=== PATIENT | male | born 1990 | race Caucasian/White ===

== ENCOUNTER 2017-03-25 11:19 | Inpatient (IN) | payer OTHER ==
[2017-03-25 11:44] VITALS: BMI 23.7
--- NOTE | 2017-03-25 13:03 | HP ---
COWS - Scale Resting Pulse: 0= [place] 80 or Below Sweatin=Flushed/Facial Moisture Restless Observation: 1= Difficult to Sit Still Pupil Size: 0= Normal to Room Light Bone or Joint Aches: 2= Severe Diffuse Aches Runny Nose/ Eye Tearin= Runny Nose/Eyes GI Upset > 30mins: 1= Stomach Cramp Tremor Observation: 2= Slight Tremor Visible Yawning Observation: 2= >3x During Session Anxiety or Irritability: 2=Irritable/Anxious Goose Flesh Skin: 3=Piloerection COWS Score: 17 CIWA Score - CIWA Score Nausea/Vomitin-No Nausea/No Vomiting Muscle Tremors: 4-Moderate,w/Arms Extend Anxiety: 4-Mod. Anxious/Guarded Agitation: 4-Moderately Restless Paroxysmal Sweats: 3 Orientation: 0-Oriented Tacttile Disturbances: 0-None Auditory Disturbances: 0-None Visual Disturbances: 0-None Headache: 1-Very Mild CIWA-Ar Total Score: 16 Admission ROS S - HPI Chief Complaint: I am here to detox. Allergies/Adverse Reactions: Allergies Allergy/AdvReac Type Severity Reaction Status Date / Time No Known Allergies Allergy Verified 03/25/17 12:39 History of Present Illness: pt is a 27yr old male with a history of heroin and xanax dependence seeking detox for treatment. Exam Limitations: No Limitations - Ebola screening Have you traveled outside of the country in the last 21 days: No Have you had contact with anyone from an Ebola affected area: No Have you been sick,other than usual withdrawal symptoms: No Do you have a fever: No - Review of Systems Constitutional: Chills, Diaphoresis, Loss of Appetite, Night Sweats, Changes in sleep, Unintentional Wgt. Loss EENT: reports: Tearing, Nose Congestion Respiratory: reports: No Symptoms reported Cardiac: reports: No Symptoms Reported GI: reports: Diarrhea, Nausea, Poor Appetite, Poor Fluid Intake : reports: No Symptoms Reported Musculoskeletal: reports: Back Pain, Joint Pain, Muscle Pain Integumentary: reports: Flushing, Sweating Neuro: reports: Headache, Tingling, Tremors Endocrine: reports: Excessive Sweating, Flushing, Intolerance to Cold, Intolerance to Heat Hematology: reports: No Symptoms Reported Psychiatric: reports: Judgement Intact, Mood/Affect Appropiate, Orientated x3, Agitated, Anxious Other Systems: Reviewed and Negative Patient History - Patient Medical History Hx Anemia: No Hx Asthma: No Hx Chronic Obstructive Pulmonary Disease (COPD): No Hx Cancer: No Hx Cardiac Disorders: No Hx Congestive Heart Failure: No Hx Hypertension: No Hx Hypercholesterolemia: No Hx Pacemaker: No HX Cerebrovascular Accident: No Hx Seizures: No Hx Dementia: No Hx Diabetes: No Hx Gastrointestinal Disorders: No Hx Liver Disease: No Hx Genitourinary Disorders: No Hx Sexually Transmitted Disorders: No Hx Renal Disease (ESRD): No Hx Thyroid Disease: No Hx Human Immunodeficiency Virus (HIV): No (negative) Hx Hepatitis C: No (negative) Hx Depression: No Hx Suicide Attempt: No (denies) Hx Bipolar Disorder: No Hx Schizophrenia: No - Patient Surgical History Past Surgical History: No Hx Neurologic Surgery: No Hx Cataract Extraction: No Hx Cardiac Surgery: No Hx Lung Surgery: No Hx Breast Surgery: No Hx Breast Biopsy: No Hx Abdominal Surgery: No Hx Appendectomy: No Hx Cholecystectomy: No Hx Genitourinary Surgery: No Hx Section: No Hx Orthopedic Surgery: No Anesthesia Reaction: No - PPD History Previous Implant?: Yes Documented Results: Negative w/o proof Implanted On Prior R Admission?: No PPD to be Administered?: Yes - Reproductive History Patient is a Female of Child Bearing Age (11 -55 yrs old): No - Smoking Cessation Smoking history: Current every day smoker Have you smoked in the past 12 months: Yes Aproximately how many cigarettes per day: 20 Hx Chewing Tobacco Use: No Initiated information on smoking cessation: Yes 'Breaking Loose' booklet given: 03/25/17 - Substance & Tx. History Hx Alcohol Use: No Hx Substance Use: Yes Substance Use Type: Heroin, Tranquilizers Hx Substance Use Treatment: Yes - Substances Abused Heroin Route: Inhalation Frequency: Daily Amount used: 20 bags Age of first use: 25 Date of Last Use: 03/24/17 Xanax Route: Oral Frequency: Daily Amount used: 8 mg. Age of first use: 25 Date of Last Use: 03/24/17 Family Disease History - Family Disease History Family History: Denies Admission Physical Exam BHS - Vital Signs Vital Signs: Vital Signs - 24 hr 03/25/17 11:35 Temperature 97.2 F L Pulse Rate 69 Respiratory 20 Rate Blood Pressure 112/68 - Physical General Appearance: Yes: Appropriately Dressed, Moderate Distress, Tremorous, Irritable, Sweating, Anxious HEENTM: Yes: Nasal Congestion, Rhinorrhea Respiratory: Yes: Lungs Clear, Normal Breath Sounds, No Respiratory Distress Neck: Yes: No masses,lesions,Nodules Breast: Yes: Within Normal Limits Cardiology: Yes: Regular Rhythm, Regular Rate, S1, S2 Abdominal: Yes: Normal Bowel Sounds, Soft Genitourinary: Yes: Within Normal Limits Back: Yes: Normal Inspection Musculoskeletal: Yes: Back pain Extremities: Yes: Normal Capillary Refill, Normal Inspection, Tremors Neurological: Yes: Fully Oriented, Alert, Normal Response Integumentary: Yes: Normal Color, Diaphoresis Lymphatic: Yes: Within Normal Limits - Diagnostic (1) Nicotine dependence Current Visit: Yes Status: Chronic (2) Opioid dependence with withdrawal Current Visit: Yes Status: Chronic (3) Sedative, hypnotic or anxiolytic dependence with withdrawal, uncomplicated Current Visit: Yes Status: Chronic (4) Weight loss Current Visit: Yes Status: Acute Cleared for Admission [facility] - Detox or Rehab [facility] Level of Care: Medically Managed Detox Regimen/Protocol: Methadone/Valium [facility] Breath Alcohol Content Breath Alcohol Content: 0 Urine Drug Screen - Results Drug Screen Negative: No Urine Drug Screen Results: OPI-Opiates, MET-Methamphetamine, BZO-Benzodiazepines , MTD-Methadone, OXY-Oxycodone
[2017-03-25] MEDS ORDERED: guaiFENesin/D-METHORPHAN HB 10 ML UNIT-DOSE CUPS PO PRN (13:04)
[2017-03-25] MEDS ORDERED: MENTHOL/PHENOL 1 EACH UD MM PRN (13:04)
[2017-03-25] MEDS ORDERED: LOPERAMIDE HCL 2 MG CAPSULE PO PRN (13:04)
[2017-03-25] MEDS ORDERED: ACETAMINOPHEN 325 MG TABLET (FP) PO PRN (13:04)
[2017-03-25] MEDS ORDERED: MAGNESIUM HYDROX 2400MG/30ML ORAL SUSPENSION 30 ML CUP PO PRN (13:04)
[2017-03-25] MEDS ORDERED: MAG HYDROX/AL HYDROX/SIMETH 30 ML UNIT-DOSE CUP PO PRN (13:04)
[2017-03-25] MEDS ORDERED: IBUPROFEN 400 MG TABLET (FP) PO PRN (13:04)
[2017-03-25] MEDS ORDERED: MAGNESIUM CITRATE 300 ML BOTTLE PO PRN (13:04)
[2017-03-25] MEDS ORDERED: P-EPHED 60MG/TRIPROLIDI 2.5MG TABLET PO PRN (13:04)
[2017-03-25] MEDS ORDERED: diazePAM 5 MG TABLET PO ONE (14:15)
[2017-03-25] MEDS ORDERED: METHADONE HCL 10 MG TABLET (FOR DETOX USE ONLY) PO ONE ×2 (14:15→23:00)
[2017-03-25] MEDS: diazePAM 5 MG TABLET PO SCH ×2 (14:50→22:04)
[2017-03-25] MEDS: NICOTINE POLACRILEX 4 MG GUM BC PRN (14:52)
[2017-03-25 16:58] LABS: URINE APPEARANCE CLEAR; URINE BILIRUBIN NEGATIVE (NEGATIVE); URINE BLOOD NEGATIVE (NEGATIVE); URINE COLOR DKYELLOW; URINE GLUCOSE (UA) NEGATIVE (NEGATIVE); URINE KETONE NEGATIVE (NEGATIVE); URINE LEUK ESTERASE NEGATIVE (NEGATIVE); URINE NITRITE NEGATIVE (NEGATIVE); URINE PROTEIN NEGATIVE (NEGATIVE); URINE UROBILINOGEN 4.0 E.U/dl E.U./dl (0.2-1.0)
[2017-03-25 17:40] LABS: MCH 30.2 pg (25.7-33.7); MCHC 33.4 g/dl (32.0-35.9); MEAN CELL VOLUME 90.4 fl (80-96); MEAN PLT VOLUME 9.6 fl (7.5-11.1); PLATELET COUNT 149 K/MM3 (134-434); RDW 12.6 % (11.9-15.9); WHITE BLOOD COUNT 8.9 K/mm3 (4.0-10.0)
[2017-03-25 17:42] LABS: ALBUMIN 4.3 g/dl (3.4-5.0); ANION GAP 7 (8-16); CALCIUM 8.8 mg/dL (8.5-10.1); CO2 31 mmol/L (21-32); COCKROFT - GAULT 183.05; CREATININE 0.7 mg/dL (0.7-1.3); GLUCOSE,RANDOM 78 mg/dL (74-106); SGOT/AST 29 U/L (15-37); SGPT/ALT 34 U/L (12-78)
[2017-03-25 17:44] LABS: ALK PHOS 68 U/L (45-117); BILIRUBIN,TOTAL 0.7 mg/dL (0.2-1.0); TOT PROT 6.9 g/dl (6.4-8.2)
--- NOTE | 2017-03-25 17:59 | CONSULT ---
[facility] Psychiatric Consult - Data Date of interview: 03/25/17 Admission source: [facility] Identifying data: First admission to [facility] for this 27 y/o male, from [facility],seeking detox treatment,on ,for heroin and xanax dependence.Patient is single without children,domiciled,unemployed and supported by relatives. Substance Abuse History: - Smoking Cessation. Smoking history: Current every day smoker. Have you smoked in the past 12 months: Yes. Aproximately how many cigarettes per day: 20. Hx Chewing Tobacco Use: No. Initiated information on smoking cessation: Yes. 'Breaking Loose' booklet given: 03/25/17. - Substance & Tx. History. Hx Alcohol Use: No. Hx Substance Use: Yes. Substance Use Type : Heroin, Tranquilizers. Hx Substance Use Treatment: Yes. - Substances Abused. Heroin. Route: Inhalation. Frequency: Daily. Amount used: 20 bags. Age of first use: 25. Date of Last Use: 03/24/17. Xanax. Route: Oral. Frequency: Daily. Amount used: 8 mg. Age of first use: 25. Date of Last Use: 03/24/17. Confirmed by patient. Medical History: Patient endorses good general health. Psychiatric History: Patient denies. Physical/Sexual Abuse/Trauma History: Patient denies. Additional Comment: Urine Drug Screen Results: OPI-Opiates, MET-Methamphetamine , BZO-Benzodiazepines, MTD-Methadone, OXY-Oxycodone.Noted. Mental Status Exam - Mental Status Exam Alert and Oriented to: Time, Place, Person Cognitive Function: Good Patient Appearance: Well Groomed Mood: Anxious, Apprehensive Affect: Mood Congruent Patient Behavior: Sedated (light sedation), Fatigued Speech Pattern: Clear, Appropriate Voice Loudness: Normal Thought Process: Goal Oriented Thought Disorder: Not Present Hallucinations: Denies Suicidal Ideation: Denies Homicidal Ideation: Denies Insight/Judgement: Poor Sleep: Fair Appetite: Good Muscle strength/Tone: Normal Gait/Station: Normal Psychiatric Findings - Problem List ([place] 1, 2,3) (1) Opioid dependence with withdrawal Current Visit: Yes Status: Acute (2) Sedative, hypnotic or anxiolytic dependence with withdrawal, uncomplicated Current Visit: Yes Status: Acute (3) Nicotine dependence Current Visit: Yes Status: Acute (4) Amphetamine abuse Current Visit: Yes Status: Acute - Initial Treatment Plan Initial Treatment Plan: Psychoeducation.Detoxification in progress.Observation.
[2017-03-25] MEDS: diazePAM 5 MG TABLET PO PRN (18:10)
[2017-03-25] MEDS: diphenhydrAMINE HCL 50 MG CAPSULE PO PRN (22:04)
[2017-03-25] MEDS: THIAMINE HCL 100 MG TABLET (FP) PO SCH (22:04)
[2017-03-26] MEDS: diazePAM 5 MG TABLET PO SCH ×3 (05:36→22:01)
[2017-03-26] MEDS ORDERED: ONDANSETRON *ODT* 4 MG TABLET SL PRN (09:55)
--- NOTE | 2017-03-26 09:55 | PN ---
S CIWA - CIWA Score Nausea/Vomitin Muscle Tremors: 3 Anxiety: 4-Mod. Anxious/Guarded Agitation: 3 Paroxysmal Sweats: 3 Orientation: 0-Oriented Tacttile Disturbances: 0-None Auditory Disturbances: 0-None Visual Disturbances: 0-None Headache: 0-None Present CIWA-Ar Total Score: 15 [facility] COWS - Scale Resting Pulse: 0= [place] 80 or Below Sweatin=Flushed/Facial Moisture Restless Observation: 1= Difficult to Sit Still Pupil Size: 0= Normal to Room Light Bone or Joint Aches: 1= Mild Discomfort Runny Nose/ Eye Tearin= Runny Nose/Eyes GI Upset > 30mins: 2= Nausea/Diarrhea Tremor Observation of Outstretched Hands: 2= Slight Tremor Visible Yawning Observation: 1= 1-2x During Session Anxiety or Irritability: 2=Irritable/Anxious Goose Flesh Skin: 0=Smooth Skin COWS Score: 13 S Progress Note (SOAP) Subjective: Anxiety,body aches,sweating,interrupted sleep,restless,tremors Objective: 03/26/17 09:54 Vital Signs - 8 hr 03/26/17 03/26/17 03/26/17 03:23 06:07 09:37 Temperature 97.0 F L 96.8 F L Pulse Rate 55 L 62 Respiratory 18 18 18 Rate Blood Pressure 110/60 115/59 Laboratory Tests 03/25/17 03/25/17 03/25/17 13:20 13:20 14:00 WBC 8.9 RBC 4.39 Hgb 13.3 Hct 39.7 MCV 90.4 MCHC 33.4 RDW 12.6 Plt Count 149 MPV 9.6 Sodium 140 Potassium 4.3 Chloride 102 Carbon Dioxide 31 Anion Gap 7 L BUN 17 Creatinine 0.7 Creat Clearance w eGFR > 60 Random Glucose 78 Calcium 8.8 Total Bilirubin 0.7 AST 29 ALT 34 Alkaline Phosphatase 68 Total Protein 6.9 Albumin 4.3 Urine Color Dkyellow Urine Appearance Clear Urine pH 6.0 Ur Specific [place] 1.032 Urine Protein Negative Urine Glucose (UA) Negative Urine Ketones Negative Urine Blood Negative Urine Nitrite Negative Urine Bilirubin Negative Urine Urobilinogen 4.0 e.u/dl Ur Leukocyte Esterase Negative labs noted Assessment: 03/26/17 09:54 Withdrawal sx. Plan: Continue detox
[2017-03-26] MEDS ORDERED: METHADONE HCL 10 MG TABLET (FOR DETOX USE ONLY) PO SCH (10:00)
[2017-03-26] MEDS: PRENATAL VITAMINS W/ FOLIC ACID TABLET (FP) PO SCH (10:10)
[2017-03-26] MEDS: NICOTINE 21 MG/24 HOURS TOPICAL PATCH TD SCH (10:11)
[2017-03-26] MEDS: diazePAM 5 MG TABLET PO PRN (10:11)
[2017-03-26] MEDS: NICOTINE POLACRILEX 4 MG GUM BC PRN (10:11)
[2017-03-26] MEDS: THIAMINE HCL 100 MG TABLET (FP) PO SCH (22:00)
[2017-03-26] MEDS: hydrOXYzine PAMOATE 50 MG CAPSULE (FP) PO PRN (22:02)
--- NOTE | 2017-03-26 23:08 | EKG ---
Test Reason : Blood Pressure : / mmHG Vent. Rate : 059 BPM Atrial Rate : 059 BPM P-R Int : 140 ms QRS Dur : 086 ms QT Int : 460 ms P-R-T Axes : 052 065 065 degrees QTc Int : 455 ms SINUS BRADYCARDIA OTHERWISE NORMAL ECG NO PREVIOUS ECGS AVAILABLE Confirmed by DANG TRISTAN MD ([id number]) on 03/26/2017 11:08:06 PM Referred By: Confirmed By:DANG TRISTAN MD
[2017-03-27] MEDS: diazePAM 5 MG TABLET PO PRN ×3 (05:52→18:24)
[2017-03-27] MEDS: NICOTINE 21 MG/24 HOURS TOPICAL PATCH TD SCH (10:07)
[2017-03-27] MEDS: NICOTINE POLACRILEX 4 MG GUM BC PRN ×3 (10:07→23:21)
[2017-03-27] MEDS: PRENATAL VITAMINS W/ FOLIC ACID TABLET (FP) PO SCH (10:07)
[2017-03-27] MEDS: diazePAM 5 MG TABLET PO SCH ×2 (10:07→22:01)
[2017-03-27] MEDS: METHADONE HCL 5 MG TABLET (FOR DETOX USE ONLY) PO SCH (10:07)
--- NOTE | 2017-03-27 12:11 | PN ---
[facility] CIWA - CIWA Score Nausea/Vomitin-Mild Nausea/No Vomiting Muscle Tremors: 3 Anxiety: 4-Mod. Anxious/Guarded Agitation: 3 Paroxysmal Sweats: 3 Orientation: 0-Oriented Tacttile Disturbances: 0-None Auditory Disturbances: 0-None Visual Disturbances: 0-None Headache: 0-None Present CIWA-Ar Total Score: 14 S COWS - Scale Resting Pulse: 0= [place] 80 or Below Sweatin=Flushed/Facial Moisture Restless Observation: 1= Difficult to Sit Still Pupil Size: 0= Normal to Room Light Bone or Joint Aches: 2= Severe Diffuse Aches Runny Nose/ Eye Tearin= Runny Nose/Eyes GI Upset > 30mins: 2= Nausea/Diarrhea Tremor Observation of Outstretched Hands: 2= Slight Tremor Visible Yawning Observation: 1= 1-2x During Session Anxiety or Irritability: 2=Irritable/Anxious Goose Flesh Skin: 0=Smooth Skin COWS Score: [address] [facility] Progress Note (SOAP) Subjective: anxiety,tremors,sweating,interrupted sleep,restless,nausea,muscle aches Objective: 03/27/17 12:09 Vital Signs - 8 hr 03/27/17 03/27/17 06:28 09:08 Temperature 97.5 F L 97.3 F L Pulse Rate 53 L 53 L Respiratory 16 18 Rate Blood Pressure 94/57 99/56 Laboratory Results - last 24 hr 03/25/17 13:20 RPR Titer Nonreactive Laboratory Tests 03/25/17 03/25/17 03/25/17 13:20 13:20 13:20 WBC 8.9 RBC 4.39 Hgb 13.3 Hct 39.7 MCV 90.4 MCHC 33.4 RDW 12.6 Plt Count 149 MPV 9.6 Sodium 140 Potassium 4.3 Chloride 102 Carbon Dioxide 31 Anion Gap 7 L BUN 17 Creatinine 0.7 Creat Clearance w eGFR > 60 Random Glucose 78 Calcium 8.8 Total Bilirubin 0.7 AST 29 ALT 34 Alkaline Phosphatase 68 Total Protein 6.9 Albumin 4.3 Urine Color Urine Appearance Urine pH Ur Specific [place] Urine Protein Urine Glucose (UA) Urine Ketones Urine Blood Urine Nitrite Urine Bilirubin Urine Urobilinogen Ur Leukocyte Esterase RPR Titer Nonreactive 03/25/17 14:00 WBC RBC Hgb Hct MCV MCHC RDW Plt Count MPV Sodium Potassium Chloride Carbon Dioxide Anion Gap BUN Creatinine Creat Clearance w eGFR Random Glucose Calcium Total Bilirubin AST ALT Alkaline Phosphatase Total Protein Albumin Urine Color Dkyellow Urine Appearance Clear Urine pH 6.0 Ur Specific [place] 1.032 Urine Protein Negative Urine Glucose (UA) Negative Urine Ketones Negative Urine Blood Negative Urine Nitrite Negative Urine Bilirubin Negative Urine Urobilinogen 4.0 e.u/dl Ur Leukocyte Esterase Negative RPR Titer labs noted Assessment: 03/27/17 12:10 Withdrawal sx. Plan: Continue detox
--- NOTE | 2017-03-27 12:24 | PN ---
[facility] Progress Note Note: Psychiatry Attending's note : Asked to address complaint of insomnia. Met with patient at bedside.Still under his blanket. Somnolent but easily awakened.Passive,indifferent to others. Rarely seen outside of his room.Only at medication calls. " I am withdrawing,that is why I stay in bed.I am tired." No depressive symptoms/signs elicited.Cognitively sound. Benefits of sleep hygiene : discussed with patient. Zolpidem 10 mg po hs.Ordered.No scripts at discharge. Mr Jacobsen is made aware of potential for parasomnias. He agrees with this careplan.
[2017-03-27] MEDS ORDERED: ZOLPIDEM TARTRATE 10 MG TABLET (PARK CARE ONLY) PO PRN (22:00)
[2017-03-27] MEDS: THIAMINE HCL 100 MG TABLET (FP) PO SCH (22:01)
[2017-03-27] MEDS: ZOLPIDEM TARTRATE 10 MG TABLET (PARK CARE ONLY) PO SCH (22:01)
[2017-03-28] MEDS: diazePAM 5 MG TABLET PO PRN ×2 (00:59→12:01)
[2017-03-28] MEDS: diphenhydrAMINE HCL 50 MG CAPSULE PO PRN (01:24)
[2017-03-28] MEDS: METHADONE HCL 5 MG TABLET (FOR DETOX USE ONLY) PO SCH (10:08)
[2017-03-28] MEDS: NICOTINE 21 MG/24 HOURS TOPICAL PATCH TD SCH (10:08)
[2017-03-28] MEDS: diazePAM 5 MG TABLET PO SCH ×2 (10:08→22:05)
[2017-03-28] MEDS: PRENATAL VITAMINS W/ FOLIC ACID TABLET (FP) PO SCH (10:08)
--- NOTE | 2017-03-28 11:13 | PN ---
[facility] Progress Note (SOAP) Subjective: Sweating,interrupted sleep,restless. Objective: 03/28/17 11:12 Vital Signs - 8 hr 03/28/17 03/28/17 03/28/17 03:19 06:16 09:21 Temperature 96.6 F L 96.4 F L Pulse Rate 49 L 50 L Respiratory 18 16 18 Rate Blood Pressure 91/61 96/61 Laboratory Last Values WBC 8.9 K/mm3 (4.0-10.0) 03/25/17 13:20 RBC 4.39 M/mm3 (4.00-5.60) 03/25/17 13:20 Hgb 13.3 GM/dL (11.7-16.9) 03/25/17 13:20 Hct 39.7 % (35.4-49) 03/25/17 13:20 MCV 90.4 fl (80-96) 03/25/17 13:20 MCHC 33.4 g/dl (32.0-35.9) 03/25/17 13:20 RDW 12.6 % (11.9-15.9) 03/25/17 13:20 Plt Count 149 K/MM3 (134-434) 03/25/17 13:20 MPV 9.6 fl (7.5-11.1) 03/25/17 13:20 Sodium 140 mmol/L (136-145) 03/25/17 13:20 Potassium 4.3 mmol/L (3.5-5.1) 03/25/17 13:20 Chloride 102 mmol/L (98-107) 03/25/17 13:20 Carbon Dioxide 31 mmol/L (21-32) 03/25/17 13:20 Anion Gap 7 (8-16) L 03/25/17 13:20 BUN 17 mg/dL (7-18) 03/25/17 13:20 Creatinine 0.7 mg/dL (0.7-1.3) 03/25/17 13:20 Creat Clearance w eGFR > 60 (>60) 03/25/17 13:20 Random Glucose 78 mg/dL (74-106) 03/25/17 13:20 Calcium 8.8 mg/dL (8.5-10.1) 03/25/17 13:20 Total Bilirubin 0.7 mg/dL (0.2-1.0) 03/25/17 13:20 AST 29 U/L (15-37) 03/25/17 13:20 ALT 34 U/L (12-78) 03/25/17 13:20 Alkaline Phosphatase 68 U/L (45-117) 03/25/17 13:20 Total Protein 6.9 g/dl (6.4-8.2) 03/25/17 13:20 Albumin 4.3 g/dl (3.4-5.0) 03/25/17 13:20 Urine Color Dkyellow 03/25/17 14:00 Urine Appearance Clear 03/25/17 14:00 Urine pH 6.0 (5.0-8.0) 03/25/17 14:00 Ur Specific [place] 1.032 (1.001-1.035) 03/25/17 14:00 Urine Protein Negative (NEGATIVE) 03/25/17 14:00 Urine Glucose (UA) Negative (NEGATIVE) 03/25/17 14:00 Urine Ketones Negative (NEGATIVE) 03/25/17 14:00 Urine Blood Negative (NEGATIVE) 03/25/17 14:00 Urine Nitrite Negative (NEGATIVE) 03/25/17 14:00 Urine Bilirubin Negative (NEGATIVE) 03/25/17 14:00 Urine Urobilinogen 4.0 e.u/dl E.U./dl (0.2-1.0) 03/25/17 14:00 Ur Leukocyte Esterase Negative (NEGATIVE) 03/25/17 14:00 RPR Titer Nonreactive (NONREACTIVE) 03/25/17 13:20 labs noted Assessment: 03/28/17 11:13 Withdrawal sx. Plan: Continue detox
[2017-03-28] MEDS: NICOTINE POLACRILEX 4 MG GUM BC PRN ×2 (12:39→22:12)
[2017-03-28] MEDS: THIAMINE HCL 100 MG TABLET (FP) PO SCH (22:05)
[2017-03-28] MEDS: ZOLPIDEM TARTRATE 10 MG TABLET (PARK CARE ONLY) PO SCH (22:05)
[2017-03-29] MEDS: diphenhydrAMINE HCL 50 MG CAPSULE PO PRN (00:39)
[2017-03-29] MEDS ORDERED: diazePAM 5 MG TABLET PO SCH (10:00)
[2017-03-29] MEDS ORDERED: METHADONE HCL 10 MG TABLET (FOR DETOX USE ONLY) PO SCH (10:00)
[2017-03-29] MEDS: PRENATAL VITAMINS W/ FOLIC ACID TABLET (FP) PO SCH (10:13)
[2017-03-29] MEDS: NICOTINE 21 MG/24 HOURS TOPICAL PATCH TD SCH (10:13)
--- NOTE | 2017-03-29 11:17 | PN ---
[facility] Progress Note (SOAP) Subjective: DECREASED ANXIETY,SWEATS,IRRITABILITY. SLEPT BETTER. Objective: 03/29/17 11:16 Vital Signs Temperature 96.5 F L 03/29/17 10:27 Pulse Rate 53 L 03/29/17 10:27 Respiratory Rate 16 03/29/17 10:27 Blood Pressure 101/62 03/29/17 10:27 O2 Sat by Pulse Oximetry (%) Assessment: 03/29/17 11:16 WITHDRAWAL SX Plan: CONTINUE DETOX
[2017-03-29] MEDS: NICOTINE POLACRILEX 4 MG GUM BC PRN ×2 (12:22→19:01)
[2017-03-29] MEDS: hydrOXYzine PAMOATE 50 MG CAPSULE (FP) PO PRN (19:00)
[2017-03-29] MEDS: THIAMINE HCL 100 MG TABLET (FP) PO SCH (22:01)
[2017-03-29] MEDS: ZOLPIDEM TARTRATE 10 MG TABLET (PARK CARE ONLY) PO SCH (22:02)
[2017-03-30] MEDS: diphenhydrAMINE HCL 50 MG CAPSULE PO PRN (00:30)
[2017-03-30] MEDS ORDERED: METHADONE HCL 5 MG TABLET (FOR DETOX USE ONLY) PO SCH (06:00)
[2017-03-30] MEDS: hydrOXYzine PAMOATE 50 MG CAPSULE (FP) PO PRN (06:09)
[2017-03-30 10:50] VITALS: BP 100/62; PULSE 71; TEMP 97.6
--- NOTE | 2017-03-30 15:55 | DS ---
[facility] Detox Discharge Summary Admission Date: 03/25/17 Discharge Date: 03/30/17 - History Present History: Opioid Dependence, Sedative Dependence Additional Comments: ADVISED PATIENT TO FOLLOW-UP WITH [facility] / REHAB MEDICAL PROVIDER AFTER DISCHARGE FROM DETOX FOR GENERAL MEDICAL ASSESSMENT AND FOR ABNORMAL LAB VALUES. - Physical Exam Results Vital Signs: Vital Signs Temperature 97.6 F 03/30/17 10:49 Pulse Rate 71 03/30/17 10:49 Respiratory Rate 18 03/30/17 10:49 Blood Pressure 100/62 03/30/17 10:49 O2 Sat by Pulse Oximetry (%) Pertinent Admission Physical Exam Findings: WITHDRAWAL SYMPTOMS. Laboratory Last Values WBC 8.9 K/mm3 (4.0-10.0) 03/25/17 13:20 RBC 4.39 M/mm3 (4.00-5.60) 03/25/17 13:20 Hgb 13.3 GM/dL (11.7-16.9) 03/25/17 13:20 Hct 39.7 % (35.4-49) 03/25/17 13:20 MCV 90.4 fl (80-96) 03/25/17 13:20 MCHC 33.4 g/dl (32.0-35.9) 03/25/17 13:20 RDW 12.6 % (11.9-15.9) 03/25/17 13:20 Plt Count 149 K/MM3 (134-434) 03/25/17 13:20 MPV 9.6 fl (7.5-11.1) 03/25/17 13:20 Sodium 140 mmol/L (136-145) 03/25/17 13:20 Potassium 4.3 mmol/L (3.5-5.1) 03/25/17 13:20 Chloride 102 mmol/L (98-107) 03/25/17 13:20 Carbon Dioxide 31 mmol/L (21-32) 03/25/17 13:20 Anion Gap 7 (8-16) L 03/25/17 13:20 BUN 17 mg/dL (7-18) 03/25/17 13:20 Creatinine 0.7 mg/dL (0.7-1.3) 03/25/17 13:20 Creat Clearance w eGFR > 60 (>60) 03/25/17 13:20 Random Glucose 78 mg/dL (74-106) 03/25/17 13:20 Calcium 8.8 mg/dL (8.5-10.1) 03/25/17 13:20 Total Bilirubin 0.7 mg/dL (0.2-1.0) 03/25/17 13:20 AST 29 U/L (15-37) 03/25/17 13:20 ALT 34 U/L (12-78) 03/25/17 13:20 Alkaline Phosphatase 68 U/L (45-117) 03/25/17 13:20 Total Protein 6.9 g/dl (6.4-8.2) 03/25/17 13:20 Albumin 4.3 g/dl (3.4-5.0) 03/25/17 13:20 Urine Color Dkyellow 03/25/17 14:00 Urine Appearance Clear 03/25/17 14:00 Urine pH 6.0 (5.0-8.0) 03/25/17 14:00 Ur Specific [place] 1.032 (1.001-1.035) 03/25/17 14:00 Urine Protein Negative (NEGATIVE) 03/25/17 14:00 Urine Glucose (UA) Negative (NEGATIVE) 03/25/17 14:00 Urine Ketones Negative (NEGATIVE) 03/25/17 14:00 Urine Blood Negative (NEGATIVE) 03/25/17 14:00 Urine Nitrite Negative (NEGATIVE) 03/25/17 14:00 Urine Bilirubin Negative (NEGATIVE) 03/25/17 14:00 Urine Urobilinogen 4.0 e.u/dl E.U./dl (0.2-1.0) 03/25/17 14:00 Ur Leukocyte Esterase Negative (NEGATIVE) 03/25/17 14:00 RPR Titer Nonreactive (NONREACTIVE) 03/25/17 13:20 LABS NOTED. - Treatment Hospital Course: Detox Protocol Followed, Detoxed Safely, Responded well, Discharged Condition Good Patient has Accepted a Rehab Referral to: NO- PT. ELECTING TO GO HOME AT THIS TIME. NA/12-STEP PROGRAMS RECOMMENDED. - Medication Discharge Medications: Ambulatory Orders NK [No Known Home Medication] 03/25/17 - Diagnosis (1) Nicotine dependence Status: Chronic Qualifiers: Nicotine product type: cigarettes Substance use status: uncomplicated Qualified Code(s): F17.210 - Nicotine dependence, cigarettes, uncomplicated (2) Opioid dependence with withdrawal Status: Acute (3) Sedative, hypnotic or anxiolytic dependence with withdrawal, uncomplicated Status: Acute (4) Weight loss Status: Acute - AMA Did Patient Leave Against Medical Advice: No
== END 2017-03-30 11:00 | disposition home or self-care (01) | DRG 773 ==
LOC: YASAS 11:19 → Y3N 13:45
PROVIDERS: ADMIT Internal Medicine; ATTEND Internal Medicine
PROC: HZ2ZZZZ Detoxification Services for Substance Abuse Treatment (ICD-10-PCS; principal; 2017-03-30)
DX: F11.23 Opioid dependence with withdrawal (principal); F13.230 Sedative, hypnotic or anxiolytic dependence with withdrawal, uncomplicated; F17.210 Nicotine dependence, cigarettes, uncomplicated; F15.10 Other stimulant abuse, uncomplicated; R63.4 Abnormal weight loss; Z68.23 Body mass index [BMI] 23.0-23.9, adult
CPT/HCPCS: 36415; 80053; 81003; 85027; 86593; 93005; 93010